=== PATIENT | female | born 1980 | race Two or more races ===

== ENCOUNTER 2017-04-03 00:17 | Emergency (ER) | payer MEDICAID ==
[2017-04-03 00:49] LABS: Hematocrit 36.4 % (36.0-46.0); Hemoglobin 11.9 g/dL (12.2-16.2); Mean Corpuscular Hemoglobin 27.6 pg (28.0-32.0); Mean Corpuscular Hgb Conc. 32.7 g/dL (32.0-36.0); Mean Corpuscular Volume 84.4 fL (80.0-100.0); Platelet Count (auto) 288 10^3/uL (140-450); Red Blood Cells 4.31 10^6/uL (4.0-5.20); Red Cell Distribution Width 15.2 % (11.8-14.3); White Blood Cell 10.3 10^3/uL (4.4-10.8)
[2017-04-03 00:52] LABS: Basophils % (manual) 0 (0.0-2.0); Blast Cells 0; Metamyelocytes % 0; Myelocytes % 0; Promyelocytes % 0; Reactive Lymphocytes 0
[2017-04-03 01:04] LABS: Albumin 3.9 g/dL (3.4-5.0); BUN/Creatinine Ratio 10.8; Calcium 8.9 mg/dL (8.5-10.1); Potassium 3.4 mmol/L (3.5-5.1)
[2017-04-03 01:06] LABS: Bilirubin, Total 0.3 mg/dL (0.2-1.0); Total Protein 8.5 g/dL (6.4-8.2)
[2017-04-03 01:28] LABS: Band Neutrophils % (manual) 1; Eosinophils % (manual) 5 (0-7); Lymphocytes % (manual) 60 (10.0-50.0); Monocytes % (manual) 1 (0-12)
[2017-04-03 01:45] LABS: Urine Bacteria NONE SEEN /hpf (None Seen); Urine Blood 1+ /uL (Negative); Urine Mucus FEW (None Seen); Urine Specific Gravity 1.024 (1.001-1.035); Urine WBC 1 /hpf (0 - 5)
[2017-04-03] MEDS ORDERED: KETOROLAC TROMETH 60MG/2ML VIAL IM ONE (07:15)
[2017-04-03 07:37] VITALS: BP 115/74
== END 2017-04-03 08:15 | disposition home or self-care (01) ==
LOC: ER 00:17
DX: S39.011A Strain of muscle, fascia and tendon of abdomen, initial encounter (principal); M19.90 Unspecified osteoarthritis, unspecified site; J45.909 Unspecified asthma, uncomplicated; E07.9 Disorder of thyroid, unspecified; Z98.51 Tubal ligation status; X58.XXXA Exposure to other specified factors, initial encounter; Y93.89 Activity, other specified; Y92.89 Other specified places as the place of occurrence of the external cause; Y99.8 Other external cause status
CPT/HCPCS: 36415; 76705; 80053; 81001; 82150; 83690; 83735; 84702; 85007; 85027; 96372; 99285; J1885

== ENCOUNTER 2017-12-10 00:03 | Emergency (ER) | payer MEDICAID ==
[~2017-12-10] VITALS: Ht 160 cm; Wt 99.8 kg
[2017-12-10 00:32] VITALS: BP 163/84
[2017-12-10] MEDS ORDERED: methylPREDNISolone SOD SUCC 125 MG/2 ML VL IM ONE (03:30)
[2017-12-10] MEDS ORDERED: KETOROLAC TROMETH 60MG/2ML VIAL IM ONE (03:30)
== END 2017-12-10 04:54 | disposition home or self-care (01) ==
LOC: ER 00:05
DX: M19.90 Unspecified osteoarthritis, unspecified site (principal)
CPT/HCPCS: 96372; 99284; J1885; J2930

== ENCOUNTER 2018-06-12 20:13 | Emergency (ER) | payer MEDICAID ==
[~2018-06-12] VITALS: Ht 162.6 cm; Wt 97.5 kg
[2018-06-12 23:22] VITALS: BP 133/91
[2018-06-13] MEDS ORDERED: HYDROcodone-ACET 10/325MG TAB PO ONE
[2018-06-13] MEDS ORDERED: TRIAMCINOLONE 40MG/ML 1ML VIAL IM ONE
== END 2018-06-13 00:22 | disposition home or self-care (01) ==
LOC: ER 20:17
DX: M06.9 Rheumatoid arthritis, unspecified (principal); Z76.0 Encounter for issue of repeat prescription
CPT/HCPCS: 96372; 99283; J3301